=== PATIENT | female | born 1950 | race Caucasian/White ===

== ENCOUNTER 2019-02-24 13:01 | Day surgery (SDC) | payer OTHER ==
[~2019-02-24] VITALS: Ht 167.6 cm; Wt 83.6 kg
[2019-02-24 13:46] VITALS: Ht 167.6 cm; Wt 83.6 kg
[2019-02-24] MEDS ORDERED: HCTZ (13:50)
[2019-02-24] MEDS ORDERED: IBUP-1544 PO (13:50)
[2019-02-24] MEDS ORDERED: ATOR40TA68 PO (13:50)
[2019-02-24] MEDS ORDERED: LOSARTAN (13:50)
[2019-02-24] MEDS ORDERED: AMLO-145 PO (13:50)
[2019-02-24] MEDS ORDERED: OMEP20CA16 PO (13:50)
[2019-02-24 14:00] VITALS: BP 150/98; PULSE 112; RESP 18
[2019-02-24] MEDS ORDERED: LIDOCAINE 4% SOLUTION 50 ML BTL ONE (14:05)
[2019-02-24] MEDS ORDERED: FENTAnyl 50 MCG/ML VIAL ONE (14:41)
[2019-02-24] MEDS ORDERED: MIDAZOLAM 1 MG/ML 2 ML INJ ONE ×2 (14:41)
[2019-02-24 15:06] VITALS: BP 131/33; RESP 20
== END 2019-02-24 16:06 | disposition home or self-care (01) ==
LOC: GIL 13:01
PROVIDERS: ATTEND Internal Medicine
DX: R19.4 Change in bowel habit (principal); K57.30 Diverticulosis of large intestine without perforation or abscess without bleeding; K29.00 Acute gastritis without bleeding
CPT/HCPCS: 43239; 45378; 87177; 88305; J2250; J3010; 88312

== ENCOUNTER 2019-06-23 15:14 | Inpatient (IN) | payer OTHER ==
[~2019-06-23] VITALS: Ht 175.3 cm; Wt 86.9 kg
[~2019-06-23 15:14] MED LIST: AMLO-145 PO; APIX5TAB PO; ATOR40TA68 PO; HCTZ; IBUP-1544 PO; LOSARTAN; OMEP20CA17 PO
[2019-06-25] MEDS ORDERED: POLYETHYLENE GLYCOL 17 GM PACKET PO PRN (16:30)
[2019-06-25] MEDS ORDERED: MAGNESIUM HYDROXIDE 30ML CUP PO PRN (16:30)
[2019-06-25] MEDS ORDERED: SENNA TAB PO PRN (16:30)
[2019-06-25] MEDS ORDERED: HYDROCODONE/APAP (5/325) TAB PO PRN (16:30)
[2019-06-25] MEDS ORDERED: PENDING SANTYL ORDER FOR WOUND CARE XX PRN (16:30)
[2019-06-25] MEDS ORDERED: BISACODYL 10 MG SUPP PR PRN (16:30)
[2019-06-25] MEDS ORDERED: ONDANSETRON 4 MG INJ IV PRN (16:30)
[2019-06-25] MEDS ORDERED: LACTULOSE 30ML CUP PO PRN (16:30)
[2019-06-25] MEDS ORDERED: ACETAMINOPHEN 325 MG TAB PO PRN (16:30)
[2019-06-25] MEDS: ALBUTEROL/IPRATROPIUM (NEB) 3 ML AMP HHN SCH ×3 (17:00→23:22)
[2019-06-25 19:18] VITALS: BP 109/75; PULSE 102; RESP 18
[2019-06-25] MEDS: SENNA TAB PO SCH (21:00)
[2019-06-25] MEDS: APIXABAN 5 MG TABLET PO SCH (21:56)
[2019-06-25] MEDS: DOCUSATE SODIUM 100 MG CAP PO SCH (21:56)
[2019-06-25] MEDS: ATORVASTATIN 20 MG TAB PO SCH (21:56)
[2019-06-25] MEDS: HYDROCODONE/APAP (10/325) TAB PO PRN (21:57)
[2019-06-26] MEDS: ALBUTEROL/IPRATROPIUM (NEB) 3 ML AMP HHN SCH ×8 (02:12→22:49)
[2019-06-26 03:16] VITALS: BP 105/72; PULSE 103; RESP 18
[2019-06-26] MEDS: PANTOPRAZOLE (EC) 40 MG TAB PO SCH (06:38)
[2019-06-26 07:00] VITALS: BP 104/75; PULSE 105; RESP 18
[2019-06-26] MEDS: HYDROCODONE/APAP (10/325) TAB PO PRN ×3 (07:57→21:43)
[2019-06-26] MEDS: DOCUSATE SODIUM 100 MG CAP PO SCH ×2 (09:20→21:42)
[2019-06-26] MEDS: APIXABAN 5 MG TABLET PO SCH ×2 (09:20→21:42)
[2019-06-26 14:00] VITALS: BP 115/66; PULSE 114; RESP 18
[2019-06-26] MEDS: SOD FERRIC GLUC COMPLX 125 MG in SOD CHLORIDE 0.9% 100 ML IVPB SCH (14:54)
[2019-06-26 19:45] VITALS: BP 103/61; PULSE 112; RESP 18
[2019-06-26] MEDS: SENNA TAB PO SCH (21:00)
[2019-06-26] MEDS: ATORVASTATIN 20 MG TAB PO SCH (21:42)
[2019-06-27] MEDS: ALBUTEROL/IPRATROPIUM (NEB) 3 ML AMP HHN SCH ×3 (01:39→07:19)
[2019-06-27 02:00] VITALS: BP 100/74; PULSE 99; RESP 18
[2019-06-27] MEDS: PANTOPRAZOLE (EC) 40 MG TAB PO SCH (06:24)
[2019-06-27 07:30] VITALS: BP 114/71; PULSE 93; RESP 18
[2019-06-27] MEDS: DOCUSATE SODIUM 100 MG CAP PO SCH ×2 (08:34→20:37)
[2019-06-27] MEDS: HYDROCODONE/APAP (10/325) TAB PO PRN ×3 (08:34→20:37)
[2019-06-27] MEDS: APIXABAN 5 MG TABLET PO SCH ×2 (08:35→20:37)
[2019-06-27] MEDS ORDERED: ALBUTEROL/IPRATROPIUM (NEB) 3 ML AMP HHN PRN (10:30)
[2019-06-27] MEDS: SOD FERRIC GLUC COMPLX 125 MG in SOD CHLORIDE 0.9% 100 ML IVPB SCH (13:15)
[2019-06-27 14:00] VITALS: BP 108/79; PULSE 115; RESP 18
[2019-06-27 19:00] VITALS: BP 109/70; PULSE 100; RESP 18
[2019-06-27] MEDS: ATORVASTATIN 20 MG TAB PO SCH (20:37)
[2019-06-27] MEDS: SENNA TAB PO SCH (20:39)
[2019-06-28 02:00] VITALS: BP 113/72; PULSE 99; RESP 18
[2019-06-28] MEDS: PANTOPRAZOLE (EC) 40 MG TAB PO SCH (06:29)
[2019-06-28] MEDS: HYDROCODONE/APAP (10/325) TAB PO PRN ×3 (06:59→21:07)
[2019-06-28 07:00] VITALS: BP 116/59; PULSE 93; RESP 18
[2019-06-28] MEDS: DOCUSATE SODIUM 100 MG CAP PO SCH ×2 (09:16→20:14)
[2019-06-28] MEDS: APIXABAN 5 MG TABLET PO SCH ×2 (09:16→20:14)
[2019-06-28] MEDS: SOD FERRIC GLUC COMPLX 125 MG in SOD CHLORIDE 0.9% 100 ML IVPB SCH (12:32)
[2019-06-28 14:00] VITALS: BP 106/63; PULSE 96; RESP 18
[2019-06-28 19:00] VITALS: BP 105/62; PULSE 104; RESP 18
[2019-06-28] MEDS: ATORVASTATIN 20 MG TAB PO SCH (20:14)
[2019-06-28] MEDS: SENNA TAB PO SCH (20:16)
[2019-06-29] MEDS: PANTOPRAZOLE (EC) 40 MG TAB PO SCH (06:19)
[2019-06-29 07:00] VITALS: BP 110/72; PULSE 101; RESP 18
[2019-06-29] MEDS: APIXABAN 5 MG TABLET PO SCH ×2 (08:18→20:12)
[2019-06-29] MEDS: DOCUSATE SODIUM 100 MG CAP PO SCH ×2 (08:18→21:00)
[2019-06-29] MEDS: HYDROCODONE/APAP (10/325) TAB PO PRN ×2 (08:18→20:13)
[2019-06-29] MEDS: SOD FERRIC GLUC COMPLX 125 MG in SOD CHLORIDE 0.9% 100 ML IVPB SCH (13:43)
[2019-06-29 14:00] VITALS: BP 111/71; PULSE 111; RESP 18
[2019-06-29 20:00] VITALS: BP 122/58; PULSE 88; RESP 18
[2019-06-29] MEDS: ATORVASTATIN 20 MG TAB PO SCH (20:12)
[2019-06-29] MEDS: SENNA TAB PO SCH (21:00)
[2019-06-30 02:02] VITALS: BP 113/73; PULSE 94; RESP 18
[2019-06-30] MEDS: PANTOPRAZOLE (EC) 40 MG TAB PO SCH (06:30)
[2019-06-30 07:00] VITALS: BP 110/78; PULSE 95; RESP 18
[2019-06-30] MEDS: APIXABAN 5 MG TABLET PO SCH ×2 (08:47→20:16)
[2019-06-30] MEDS: DOCUSATE SODIUM 100 MG CAP PO SCH ×2 (08:47→21:00)
[2019-06-30] MEDS: HYDROCODONE/APAP (10/325) TAB PO PRN ×2 (08:48→20:18)
[2019-06-30 14:00] VITALS: BP 142/87; PULSE 104; RESP 18
[2019-06-30] MEDS: SOD FERRIC GLUC COMPLX 125 MG in SOD CHLORIDE 0.9% 100 ML IVPB SCH (14:04)
[2019-06-30 20:00] VITALS: BP 112/72; PULSE 108; RESP 18
[2019-06-30] MEDS: FERROUS SULFATE (EC) 325 MG TAB PO SCH (20:16)
[2019-06-30] MEDS: ATORVASTATIN 20 MG TAB PO SCH (20:16)
[2019-06-30] MEDS: SENNA TAB PO SCH (21:00)
[2019-07-01] MEDS: PANTOPRAZOLE (EC) 40 MG TAB PO SCH (06:07)
[2019-07-01 07:30] VITALS: BP 105/72; PULSE 98; RESP 18
[2019-07-01] MEDS: APIXABAN 5 MG TABLET PO SCH ×2 (09:03→21:29)
[2019-07-01] MEDS: DOCUSATE SODIUM 100 MG CAP PO SCH ×2 (09:03→21:00)
[2019-07-01] MEDS: FERROUS SULFATE (EC) 325 MG TAB PO SCH ×2 (09:03→21:29)
[2019-07-01] MEDS: HYDROCODONE/APAP (10/325) TAB PO PRN ×2 (12:14→21:30)
[2019-07-01 14:00] VITALS: BP 114/74; PULSE 111; RESP 18
[2019-07-01 20:00] VITALS: BP 123/75; PULSE 111; RESP 18
[2019-07-01] MEDS: SENNA TAB PO SCH (21:00)
[2019-07-01] MEDS: ATORVASTATIN 20 MG TAB PO SCH (21:29)
[2019-07-02 02:00] VITALS: BP 110/78; PULSE 87; RESP 18
[2019-07-02] MEDS: PANTOPRAZOLE (EC) 40 MG TAB PO SCH (06:10)
[2019-07-02 07:30] VITALS: BP 96/67; PULSE 93; RESP 18
[2019-07-02] MEDS: FERROUS SULFATE (EC) 325 MG TAB PO SCH (08:53)
[2019-07-02] MEDS: APIXABAN 5 MG TABLET PO SCH (08:53)
[2019-07-02] MEDS: DOCUSATE SODIUM 100 MG CAP PO SCH (08:54)
== END 2019-07-02 13:00 | disposition home health service (06) | DRG 947 ==
LOC: VRC 06-25 15:59
PROVIDERS: ADMIT Physical Medicine & Rehabilitation; ATTEND Internal Medicine Pulmonary Disease
DX: R53.81 Other malaise (principal); I26.99 Other pulmonary embolism without acute cor pulmonale; D62 Acute posthemorrhagic anemia; K21.9 Gastro-esophageal reflux disease without esophagitis; Z74.09 Other reduced mobility; I10 Essential (primary) hypertension; Z96.641 Presence of right artificial hip joint; E78.5 Hyperlipidemia, unspecified; Z96.651 Presence of right artificial knee joint
CPT/HCPCS: 80053; 81001; 82270; 85025; 87081; 87086; 93971; 94640; 94664; 97110; 97116; 97150; 97161; 97166; 97530; 97535; J2916